=== PATIENT | male | born 1990 | race American Indian/Alaskan Native ===

== ENCOUNTER 2016-06-30 12:59 | Emergency (ER) | payer SELFPAY | END 2016-06-30 13:00 | disposition left against medical advice (07) | LOC: ED 12:59 | DX: S00.90XA Unspecified superficial injury of unspecified part of head, initial encounter (principal); X58.XXXA Exposure to other specified factors, initial encounter; Y93.9 Activity, unspecified; Y92.9 Unspecified place or not applicable; Y99.9 Unspecified external cause status; Z53.21 Procedure and treatment not carried out due to patient leaving prior to being seen by health care provider ==